=== PATIENT | female | born 1980 | race Caucasian/White ===

== ENCOUNTER → 2020-12-10 08:11 | Outpatient (CLI) | payer BC, SELFPAY ==
--- NOTE | ~2020-12-10 | MMUS_ITS ---
EXAMINATION: MM diagnostic jackson BI w tomas, US breast LT complete HISTORY: Follow-up left breast asymmetry TECHNIQUE: Additional 3-D tomosynthesis images of the breasts were performed and synthetic 2-D images were generated. CAD analysis was submitted and interpreted. High resolution complete left breast ult rasound was performed. COMPARISON: No prior studies for comparison. BREAST PARENCHYMAL COMPOSITION: Breast composed of scattered areas of fibroglandular density FINDINGS: MAMMOGRAPHIC FINDINGS: There are no suspicious masses, calcifications or architectural distortion in either breast to sugges t malignancy. ULTRASOUND: Complete left breast ultrasound including all 4 quadrants: There is a 4 mm cyst at 2:00, 6 cm from th e nipple. Otherwise, unremarkable left breast ultrasound. No sonographic evidence for malignancy. IMPRESSION: 1. No evidence for malignancy in either breast. 2. Routine yearly screening mammogram and regular clinical breast examination are recommended. BI-RADS Category 2: Benign finding(s). Reviewed, dictated and finalized at location A. IMPRESSION: 1. No evidence for malignancy in either breast. 2. Routine yearly screening mammogram and regular clinical breast examination a re recommended. BI-RADS Category 2: Benign finding(s).
== END ==
PROVIDERS: PCP Emergency Medicine; Visit Provider Emergency Medicine
DX: N64.4 Mastodynia (principal); N63.21 Unspecified lump in the left breast, upper outer quadrant
CPT/HCPCS: 76641; 77062; 77066; G0279

== ENCOUNTER → 2021-12-30 10:15 | Outpatient (CLI) | payer BC, SELFPAY ==
--- NOTE | ~2021-12-30 | XR_ITS ---
EXAMINATION: XR UGIAC w kub DATE: 12/30/2021 11:50 INDICATION: GERD without esophagitis TECHNIQUE: The patient drank thick barium, gas-producing crystals, and thin barium. Fluoroscopy of th e esophagus, stomach, and proximal small bowel were performed. A conventional personal attendant radiograph of the abdomen is obtained. Fluoroscopy exposure time was 1.8 minutes. The DAP for this procedure was 12.39 Gycm2. COMPARISON: None. FINDINGS: Wheel Installer radiograph is unremarkable. There is no mass or stricture of the esophagus. Esophagea l motility is normal. There is no hiatal hernia. There was no gastroesophageal reflux with provocativ e maneuvers. The stomach and proximal small bowel show normal folding patterns. IMPRESSION: 1. Unremarkable upper GI. Reviewed, dictated and finalized at location B. IMPRESSION: 1. Unremarkable upper GI.
--- NOTE | ~2021-12-30 | MM_ITS ---
EXAMINATION: MM screening jackson BI w tomas HISTORY: Screening mammogram TECHNIQUE: Craniocaudal and mediolateral oblique 3-D tomosynthesis images were obtained and synthetic 2-D images were generated. CAD analysis was submitted and interpreted. COMPARISON: December 10, 2020 bilateral diagnostic mammography and complete left breast ultrasound BREAST PARENCHYMAL COMPOSITION: There are scattered areas of fibroglandular density. FINDINGS: There is no evidence of suspicious mass, calcification, or architectural distortion to sugg est malignancy in either breast. There has been no suspicious interval change. IMPRESSION: 1. No mammographic evidence of malignancy. 2. Recommend routine screening mammography in one year. BI-RADS Category 1: Negative Reviewed, dictated and finalized at location A.
--- NOTE | ~2021-12-30 | US_ITS ---
EXAMINATION: US abdomen complete DATE: 12/30/2021 11:42 INDICATION: Abdominal pain TECHNIQUE: Multiple grayscale and Doppler ultrasound images of the abdomen were obtained. COMPARISON: None available FINDINGS: The head, body, and tail of the pancreas are normal. The liver is normal with normal echoge nicity and echotexture. No surface nodularity. Normal hepatopetal flow in the main portal vein. The g allbladder is normal with no abnormal wall thickening, pericholecystic fluid or stones. The normal co mmon bile duct measures 3 mm. There was no sonographic Reddy sign. The visualized portions of the ao rta and inferior vena cava are normal. The right kidney measures 11.3 x 6.2 x 5.8 cm. The left kidney measures 9.6 x 5.1 x 5.5 cm. The kidne ys demonstrate normal parenchymal echogenicity. There is no hydronephrosis. The spleen is normal in a ppearance and measures 11.1 cm. IMPRESSION: 1. No sonographic correlate for the patient's symptoms. Reviewed, dictated and finalized at location B.
== END ==
PROVIDERS: PCP Emergency Medicine; Visit Provider Emergency Medicine
DX: Z12.31 Encounter for screening mammogram for malignant neoplasm of breast (principal); R10.9 Unspecified abdominal pain
CPT/HCPCS: 74246; 76700; 77063; 77067